=== PATIENT | female | born 1940 | race African-American/Black ===

== ENCOUNTER 2017-03-09 17:09 | Emergency (ER) | payer MEDICARE ==
[~2017-03-09] VITALS: Ht 162.6 cm; Wt 50.0 kg
[2017-03-09] MEDS ORDERED: ONDANSETRON HCL 4MG/2ML VIAL IV STA (18:06)
[2017-03-09] MEDS ORDERED: FAMOTIDINE 20MG/2ML VIAL IV STA (18:06)
[2017-03-09] MEDS ORDERED: SODIUM CHLORIDE 0.9% 1,000 ML IV ONE (18:06)
[2017-03-09 20:05] LABS: BASOPHILS % 0.6 % (0.0-2.0); EOSINOPHILS % 2.5 % (0.0-5.0); HEMATOCRIT. 32.5 % (36.0-48.0); HEMOGLOBIN. 10.6 g/dL (12.0-16.0); LYMPHOCYTES % 14.9 % (20.0-50.0); MEAN CORPUSCULAR HEMOGLOBIN 28.3 pg (28.0-32.0); MEAN CORPUSCULAR VOLUME 87.1 fL (81.0-99.0); MONOCYTES % 6.4 % (2.0-8.0); NEUTROPHILS % 75.6 % (40.0-76.0); PLATELET 251 x1000/uL (130-400); RED BLOOD CELL COUNT 3.73 mill/uL (4.2-5.4); RED CELL DISTRIBUTION WIDTH 14.8 % (11.6-14.6)
[2017-03-09 20:15] LABS: CARBON DIOXIDE 27 mEq/L (21-32); CHLORIDE 106 mEq/L (98-107); ETHANOL BLOOD < 10 mg/dL
[2017-03-09 20:19] LABS: TROPONIN I < 0.02 ng/mL (0.00-0.04)
[2017-03-09 21:21] VITALS: BP 138/67
[2017-03-09 22:36] LABS: CLARITY URINE CLEAR (CLEAR); COLOR URINE YELLOW (YELLOW); GLUCOSE URINE NEGATIVE (NEGATIVE); KETONES URINE NEGATIVE (NEGATIVE); LEUKOCYTE ESTERASE URINE NEGATIVE (NEGATIVE); NITRITE URINE NEGATIVE (NEGATIVE); OCCULT BLOOD URINE NEGATIVE (NEGATIVE); PROTEIN URINE NEGATIVE (NEGATIVE); UROBILINOGEN URINE 0.2 E.U./dL (0.2-1.0)
[2017-03-09 22:46] LABS: *AMPHETAMINES SCREEN URINE NEGATIVE (NEGATIVE); *BARBITURATES SCREEN URINE NEGATIVE (NEGATIVE); *BENZODIAZEPINES SCREEN URINE NEGATIVE (NEGATIVE); *COCAINE SCREEN URINE NEGATIVE (NEGATIVE); CANNABINOID URINE SCREEN NEGATIVE (NEGATIVE); METHADONE URINE SCREEN NEGATIVE (NEGATIVE); OPIATES URINE SCREEN PRESUMTIVE POSITIVE (NEGATIVE); PHENCYCLIDINE URINE SCREEN NEGATIVE (NEGATIVE)
== END 2017-03-09 23:00 | disposition home or self-care (01) ==
LOC: ER 17:19
DX: E87.2 Acidosis (principal); N28.1 Cyst of kidney, acquired; E86.0 Dehydration; I10 Essential (primary) hypertension
CPT/HCPCS: 36415; 71010; 74176; 80053; 80305; 81003; 83605; 83690; 84484; 85025; 93005; 96361; 96374; 99285; G0482; J3490; J7030

== ENCOUNTER 2018-05-14 11:12 | Emergency (ER) | payer MEDICARE, MEDICAID ==
[~2018-05-14] VITALS: Ht 172.7 cm; Wt 56.0 kg
[2018-05-14] MEDS ORDERED: ONDANSETRON HCL 4MG/2ML INJ IV STA (11:16)
[2018-05-14] MEDS ORDERED: SODIUM CHLORIDE 0.9% 500 ML IV ONE (11:16)
[2018-05-14] MEDS ORDERED: LEVETIRACETAM 500MG PREMIX 100 ML IV ONE (12:00)
[2018-05-14 12:23] LABS: CHLORIDE 105 mEq/L (98-107)
[2018-05-14 12:25] LABS: INR 1.1; PROTHROMBIN TIME 10.8 sec (9.1-11.1)
[2018-05-14 12:26] LABS: HEMATOCRIT. 36.8 % (36.0-48.0); HEMOGLOBIN. 11.8 g/dL (12.0-16.0); MEAN CORPUSCULAR HEMOGLOBIN 27.7 pg (28.0-32.0); MEAN CORPUSCULAR VOLUME 86.4 fL (81.0-99.0); MEAN PLATELET VOLUME 10.4 fl (7.4-10.4); PLATELET 183 x1000/uL (130-400); RED BLOOD CELL COUNT 4.25 mill/uL (4.2-5.4); RED CELL DISTRIBUTION WIDTH 15.5 % (11.6-14.6)
[2018-05-14 12:27] LABS: ETHANOL BLOOD < 10 mg/dL
[2018-05-14 12:30] LABS: LDL CHOLESTEROL 84 mg/dL (5-100)
[2018-05-14 13:09] LABS: PLATELET ESTIMATE NORMAL
[2018-05-14] MEDS ORDERED: ATENOLOL 25MG TABLET PO ONE (15:15)
[2018-05-14 17:41] LABS: CLARITY URINE CLEAR (CLEAR); COLOR URINE YELLOW (YELLOW); KETONES URINE NEGATIVE (NEGATIVE); LEUKOCYTE ESTERASE URINE TRACE (NEGATIVE); NITRITE URINE NEGATIVE (NEGATIVE); OCCULT BLOOD URINE NEGATIVE (NEGATIVE); PROTEIN URINE NEGATIVE (NEGATIVE); SPECIFIC GRAVITY URINE 1.011 (1.005-1.030); UROBILINOGEN URINE 0.2 E.U./dL (0.2-1.0)
[2018-05-14 17:52] LABS: *AMPHETAMINES SCREEN URINE NEGATIVE (NEGATIVE)
[2018-05-14 17:53] LABS: *BARBITURATES SCREEN URINE NEGATIVE (NEGATIVE); *BENZODIAZEPINES SCREEN URINE NEGATIVE (NEGATIVE); *COCAINE SCREEN URINE NEGATIVE (NEGATIVE); METHADONE URINE SCREEN NEGATIVE (NEGATIVE); OPIATES URINE SCREEN PRESUMTIVE POSITIVE (NEGATIVE)
[2018-05-14 17:54] LABS: CANNABINOID URINE SCREEN NEGATIVE (NEGATIVE); PHENCYCLIDINE URINE SCREEN NEGATIVE (NEGATIVE)
[2018-05-14 18:23] VITALS: BP 163/63
== END 2018-05-14 18:41 | disposition short-term general hospital (02) ==
LOC: ER 11:12 → CANBEDREQ 19:13
DX: G40.209 Localization-related (focal) (partial) symptomatic epilepsy and epileptic syndromes with complex partial seizures, not intractable, without status epilepticus (principal); R41.82 Altered mental status, unspecified; E11.9 Type 2 diabetes mellitus without complications; I10 Essential (primary) hypertension; Z88.8 Allergy status to other drugs, medicaments and biological substances
CPT/HCPCS: 36415; 70450; 71045; 80053; 80305; 81003; 82962; 83605; 83721; 84484; 85025; 85610; 93005; 96361; 96365; 96375; 99285; G0482; J1953; J2405; J7040